=== PATIENT | male | born 1955 | race Caucasian/White ===

== ENCOUNTER 2020-03-01 21:16 | Emergency (ER) | payer OTHER ==
[~2020-03-01] VITALS: Ht 180.3 cm; Wt 95.3 kg
[2020-03-01] MEDS ORDERED: ZOLOFT50 M1 PO (21:26)
[2020-03-01] MEDS ORDERED: OMEPRAZOLE 20 M20 M1 PO (21:26)
[2020-03-01] MEDS ORDERED: FLOMAX0.4 MG PO (21:26)
[2020-03-01 22:08] LABS: BASOPHILS 0.3 % (0.0-2.0); EOSINOPHILS 0.2 % (0.0-3.0); HEMATOCRIT 43.7 % (42.0-52.0); HEMOGLOBIN 14.8 gm/dL (14.0-18.0); LYMPHOCYTES 6.5 % (24.0-44.0); MCH 31.5 pg (26.0-34.0); MCHC 33.9 g/dL (28.0-37.0); MCV 93.1 fL (80.0-100.0); MONOCYTES 5.2 % (1.0-8.0); PLATELET COUNT 236 thou/uL (150-400); POLYS 87.8 % (36.0-66.0); RDW 13.2 % (10.5-14.5); WBC 11.4 thou/uL (4.0-11.0)
[2020-03-01 22:15] LABS: CALCIUM 9.5 mg/dL (8.5-10.1); CREATININE 1.2 mg/dL (0.7-1.3)
[2020-03-01 22:16] LABS: MAGNESIUM 1.8 mg/dL (1.8-2.4)
[2020-03-01 23:11] VITALS: BP 159/72
--- NOTE | 2020-03-02 09:56 | EKG ---
[facility] [place] [address] ELECTROCARDIOGRAM REPORT Name: MANJEET ISABEL Room #: DEP 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
== END 2020-03-01 23:11 | disposition home or self-care (01) ==
LOC: ER 21:16
PROVIDERS: Emergency Medicine
DX: R53.83 Other fatigue (principal); R19.7 Diarrhea, unspecified; R06.02 Shortness of breath; R20.0 Anesthesia of skin; Z20.828 Contact with and (suspected) exposure to other viral communicable diseases; Z79.899 Other long term (current) drug therapy; Z87.891 Personal history of nicotine dependence